=== PATIENT | female | born 1970 | race Caucasian/White ===

== ENCOUNTER 2017-05-26 12:52 | Emergency (ER) | payer MEDICAID ==
[~2017-05-26] VITALS: Ht 154.9 cm; Wt 61.2 kg
[2017-05-26 12:58] VITALS: BP 153/76
== END 2017-05-26 14:43 | disposition home or self-care (01) ==
LOC: ED 14:20
DX: S39.012A Strain of muscle, fascia and tendon of lower back, initial encounter (principal); Z90.710 Acquired absence of both cervix and uterus; X58.XXXA Exposure to other specified factors, initial encounter; Y93.89 Activity, other specified; Y92.89 Other specified places as the place of occurrence of the external cause; Y99.8 Other external cause status
CPT/HCPCS: 72110; 99284